=== PATIENT | male | born 1960 | race Caucasian/White ===

== ENCOUNTER → 2019-06-25 | Day surgery (SDC) | payer BC ==
[~2019-06-25] MED LIST: ASPIR 8181 MG PO; AVADART PO; DEXAMETHASONE SOD PHOS INJ 4 MG/ML VIAL ONE; FENTANYL CITRATE/PF 100MCG/2 ML INJ ONE; FLOMAX0.4 MG PO; GLYCOPYRROLATE INJ 1MG/ 5 ML SYR ONE; LEVOFLOXACIN 500MG/D5W 100ML 100 ML IV ONE; LIDOCAINE HCL 2% LOCAL INJ 5 ML SDV VIAL INJ ONE; MIDAZOLAM HCL 2 MG/2 ML VIAL ONE; MULTIVITAMINS1 EAC7 PO; ONDANSETRON HCL INJ 2MG/ML 2ML 2 MG/ML VIAL ONE; PRILOSEC OTC20 MG; PROPOFOL IV EMULSION 10 MG/ML 20 ML VIAL ONE; SEVOFLURANE INHAL SOLN 250 ML PEN BTL ONE; VITAMIN B12-FO1 EACH PO
--- OUTSIDE RECORDS SUMMARY | 2019-06-25 07:27 | XMS REPORT | Clinical Summary ---
Author Author [facility] Organization [place] [facility] Address Unknown Phone Unavailable Care Team Providers Care Bridge Mechanic Name Role Phone Asked, No Pcp PCP Unavailable Allergies No Known Allergies Medications End Date Status Medication Sig Dispensed Refills Start Date Active dutasteride (AVODART) 0.5 Take 0.5 mg 1 mg capsule by mouth 9 daily. Active tamsulosin (FLOMAX) 0.4 Take 0.4 mg 0 mg capsule by mouth. Active omeprazole (PriLOSEC) 10 Take 10 mg by 0 MG capsule mouth. Active BABY ASPIRIN ORAL Take by 0 mouth. Active acetaminophen-codeine Take 1 tablet 0 (TYLENOL WITH CODEINE #3) by mouth 9 300-30 mg per tablet every 6 (six) hours as needed. 06/12/2019 acetaminophen-codeine Take 1 tablet 15 tablet 0 (TYLENOL WITH CODEINE #3) by mouth 9 300-30 mg per every 6 (six) tabletIndications: Acute hours as Pain needed for moderate pain for up to 5 days .Acute Pain. 06/12/2019 keTOROlac (TORadol) 10 mg Take 1 tablet 20 tablet 0 tablet (10 mg total) 9 by mouth every 6 (six) hours as needed for moderate pain for up to 5 days. Active Problems Not on file Encounters Care Team Description Date Type Specialty Edwin Benson MD Uric acid nephrolithiasis (Primary Dx); Calculus of kidney 06/23/2019 Transcribe Access Orders Josh Nguyễn MD Su, Young, MD 06/17/2019 Anesthesia General Surgery Event Edwin Benson MD EXTRACORPOREAL SHOCKWAVE LITHOTRIPSY (ESWL) INITIAL-RIGHT 06/17/2019 Surgery General Surgery Edwin Benson MD 06/17/2019 Hospital General Surgery Encounter Edwin Benson MD Preoperative testing (Primary Dx) 06/12/2019 Pre-Admit Pre-Admission Testing Testing Appointment Edwin Benson MD Uric acid nephrolithiasis (Primary Dx) 06/12/2019 Transcribe Access Orders Kang Philippe MD Renal colic on left side (Primary Dx); Flank pain; Kidney stone; 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 06/07/2019 Emergency Emergency Medicine Edwin Benson MD Calculus of kidney (Primary Dx) 05/26/2019 Transcribe Access Orders Edwin Benson MD Kidney stone (Primary Dx) 02/20/2019 Transcribe Access Orders Edwin Benson MD Calculus of kidney; Calculus of ureter 11/22/2018 Hospital Radiology Encounter Edwin Benson MD Calculus of kidney; Calculus of ureter 08/19/2018 Hospital Radiology Encounter after 06/24/2018 Social History Date Tobacco Use Types Packs/Day Years Used Never Smoker Smokeless Tobacco: Never Used Drinks/Week oz/Week Comments Alcohol Use occ Yes Alcohol Habits Answer Date Recorded How often do you have a drink containing alcohol? Never 06/07/2019 How many drinks containing alcohol do you have on Not asked a typical day when you are drinking? How often do you have six or more drinks on one Not asked occasion? Sex Assigned at Date Recorded Not on file Industry Job Start Date Occupation Not on file Not on file Not on file Travel End Travel History Travel Start No recent travel history available. Last Filed Vital Signs Reading Time Taken Comments Vital Sign 176/80 06/17/2019 1:16 PM CDT Blood Pressure 67 06/17/2019 1:16 PM CDT Pulse 36.3 C (97.4 F) 06/17/2019 1:16 PM CDT Temperature 18 06/17/2019 1:16 PM CDT Respiratory Rate 97% 06/17/2019 1:16 PM CDT Oxygen Saturation - - Inhaled Oxygen Concentration 94.9 kg (209 lb 4.8 oz) 06/17/2019 10:56 AM CDT Weight 175.3 cm (5' 9") 06/17/2019 10:56 AM CDT Height 30.91 06/17/2019 10:56 AM CDT Body Mass Index Plan of Treatment Health Maintenance Due Date Last Done Comments COLONOSCOPY SCREENING 2009 SHINGLES VACCINES (#1) 2009 INFLUENZA VACCINE 05/01/2019 Procedures Comments Procedure Name Priority Date/Time Associated Diagnosis XR KUB KIDNEY URETER Routine 06/23/2019 Calculus of kidney BLADDER 9:27 AM CDT MN AN ELECTIVE Routine 06/17/2019 SUPRAGLOTTIC AIRWAY 12:26 PM CDT PROTHROMBIN TIME WITH INR Routine 06/12/2019 Preoperative testing 4:47 PM CDT ECG 12-LEAD Routine 06/12/2019 Preoperative testing 4:25 PM CDT XR ABDOMEN 1 VW Routine 06/12/2019 Uric acid nephrolithiasis 11:[address] ABDOMEN PELVIS WO STAT 06/07/2019 CONTRAST 11:41 AM CDT GRAM STAIN STAT 06/07/2019 11:23 AM CDT URINE CULTURE STAT 06/07/2019 11:23 AM CDT ESTIMATED GFR STAT 06/07/2019 10:38 AM CDT URINALYSIS SCREEN AND STAT 06/07/2019 MICROSCOPY, WITH REFLEX 10:38 AM CDT TO CULTURE COMPREHENSIVE METABOLIC STAT 06/07/2019 PANEL 10:38 AM CDT HC COMPLETE BLD COUNT STAT 06/07/2019 W/AUTO DIFF 10:38 AM CDT XR ABDOMEN 1 VW Routine 05/26/2019 Calculus of kidney 3:18 PM CDT XR ABDOMEN 1 VW Routine 02/20/2019 Kidney stone 12:52 PM CDT XR ABDOMEN 1 VW Routine 11/22/2018 Calculus of kidney 10:06 AM FLEXO OPERATOR Calculus of ureter XR ABDOMEN 1 VW Routine 08/19/2018 Calculus of kidney 10:14 AM FLEXO OPERATOR Calculus of ureter after 06/24/2018 Results * XR Kub Kidney Ureter Bladder (06/23/2019 9:27 AM CDT) Specimen Narrative Performed At EXAMINATION:XR KUB KIDNEY URETER BLADDER [facility] CLINICAL HISTORY:N20.0 Calculus of kidney, N20.0 COMPARISON:06/12/2019 IMPRESSION: 1.Small calyceal calculi overlying the kidneys appear stable. Cholecystectomy clips. L5-S1 fusion hardware. Bowel gas pattern nonspecific. Procedure Note Hm Interface, Radiology Results Incoming - 06/23/2019 9:45 AM CDT EXAMINATION: XR KUB KIDNEY URETER BLADDER CLINICAL HISTORY: N20.0 Calculus of kidney, N20.0 COMPARISON: 06/12/2019 IMPRESSION: 1.Small calyceal calculi overlying the kidneys appear stable. Cholecystectomy clips. L5-S1 fusion hardware. Bowel gas pattern nonspecific. Performing Organization Address City/State/Zipcode Phone Number [facility] [address] [place] [address] * Airway (06/17/2019 12:26 PM CDT) Narrative Performed At Josh Nguyễn MD 06/17/20194:16 PM Airway Date/Time: 06/17/2019 12:15 PM Performed by: Jocy Sandy CRNA Authorized by: Josh Nguyễn MD Location:OR Urgency:Elective Difficult Airway: No Anesthesiologist:Josh Nguyễn MD Resident/POULTRY CUTTER/AA:Jocy Sandy CRNA Performed by: resident/POULTRY CUTTER/AA Preoxygenated with 100% O2: Yes C-spine Precautions Maintained Throughout: Yes Mask Ventilation:Not attempted Final Airway Type:Supraglottic airway Final LMA:Unique LMA Size:4 Number of Attempts at Approach:1 * Prothrombin time with INR (06/12/2019 4:47 PM CDT) Prothrombin 13.4 11.5 - 14.5 sec CLARK time [facility] INR 1.05 [facility] Comment: [facility] For patients on anticoagulant [facility] therapy, reference ranges HOSPITAL below: Indication: INR Value Treatment of Venous Thrombosis, 2.0-3.0 pulmonary emboli, or prophylaxis of a venous thrombosis, or systemic emboli. High dose, high risk patients 3.0-4.5 with mechanical valves. NOTE:INR values over 3.0 are sometimes associated with gastrointestinal hemorrhage, especially values over 4.0. Specimen Blood Performing Organization Address City/State/Zipcode Phone Number [facility] [address] [place] [address] PATHOLOGY AND GENOMIC MEDICINE [facility] [address] [place] [address] HOSPITAL * ECG 12 lead (06/12/2019 4:25 PM CDT) Ventricular 63 [facility] rate Atrial rate 63 [facility] MN interval 144 [facility] QRSD interval 90 [facility] QT interval 426 [facility] QTC interval 435 [facility] P axis 1 11 [facility] QRS axis 1 30 [facility] T wave axis 54 [facility] EKG impression Normal sinus rhythm-Normal [facility] MUSE ECG-In automated comparison with ECG of 19-AUG-2013 12:53,-No significant change was found- Specimen Narrative Performed At Performing Organization Address City/[facility] Cent[facility] Phone Number [facility] [address] [place] [address] * XR Abdomen 1 Vw (06/12/2019 11:28 AM CDT) Only the most recent of 5 results within the time period is included. Specimen Narrative Performed At EXAMINATION:XR ABDOMEN 1 VW [facility] CLINICAL HISTORY:N20.0 Calculus of kidney, n20.0 COMPARISON:None. IMPRESSION: Numerous 3 to 4 mm calcifications project over the lower pole and to a lesser extent the upper pole of the right kidney. No definite calcifications in the expected course of the right ureter. 3 to 4 mm calyceal calcifications in the upper pole of the left kidney. No definite calcifications in the expected course of the ureter. There is a nonspecific bowel gas pattern Phleboliths in lower pelvis [id number] Procedure Note Interface, Radiology Results Incoming - 06/12/2019 11:39 AM CDT EXAMINATION: XR ABDOMEN 1 VW CLINICAL HISTORY: N20.0 Calculus of kidney, n20.0 COMPARISON: None. IMPRESSION: Numerous 3 to 4 mm calcifications project over the lower pole and to a lesser extent the upper pole of the right kidney. No definite calcifications in the expected course of the right ureter. 3 to 4 mm calyceal calcifications in the upper pole of the left kidney. No definite calcifications in the expected course of the ureter. There is a nonspecific bowel gas pattern Phleboliths in lower pelvis [id number] Performing Organization Address City/State/Zipcode Phone Number [facility] [address] [place] [address] * CT Abdomen Pelvis Wo Contrast (06/07/2019 11:41 AM CDT) Specimen Narrative Performed At EXAMINATION:CT ABDOMEN PELVIS WO CONTRAST [facility] CLINICAL HISTORY:Flank painrecurrent stone disease suspected COMPARISON:January 25, 2010 TECHNIQUE: Multiple axial CT images of the Abdomen and pelvis were obtained Without IV contrast limiting evaluation . Sagittal and coronal reconstructions were done. Radiation dose reduction technique used for this study. CT imaging was performed with iterative reconstruction technique and/or automated exposure control to reduce radiation dose. FINDINGS: HEPATOBILIARY:Hepatic cysts have increased in size with the largest in the inferior right hepatic lobe measuring 3.3 cm. GALLBLADDER: Absent. SPLEEN:No splenomegaly. PANCREAS:Unremarkable within the limitations of a noncontrast exam. ADRENALS:No adrenal nodules. KIDNEYS:Bilateral renal sinus is suspected. This measure up to 2.6 cm in the right. Nonobstructing calyceal stones present in both kidneys measuring up to 4 mm. There is no hydronephrosis. No ureter stones are detected. Small left renal cyst measures 1.4 cm. PERITONEUM/RETROPERITONEUM:No free air or fluid. No lymphadenopathy. ABDOMINAL AORTA/IVC: No signs of aneurysm. GI TRACT:There are some postoperative changes of prior gastric sleeve surgery. No bowel distention or bowel wall thickening. There are postoperative changes of prior appendectomy.No signs of diverticulitis. PELVIC ORGANS/BLADDER:There is a layering 3 mm stone in the urinary bladder. Prostate gland is not enlarged. BONES AND SOFT TISSUES:No acute abnormality. VISUALIZED LOWER CHEST: No acute abnormality. IMPRESSION: Nonobstructing stones in both kidneys. Small layering stone in the urinary bladder. [id number] Procedure Note Interface, Radiology Results - 06/07/2019 11:56 AM CDT EXAMINATION: CT ABDOMEN PELVIS WO CONTRAST CLINICAL HISTORY: Flank pain recurrent stone disease suspected COMPARISON: January 25, 2010 TECHNIQUE: Multiple axial CT images of the Abdomen and pelvis were obtained Without IV contrast limiting evaluation . Sagittal and coronal reconstructions were done. Radiation dose reduction technique used for this study. CT imaging was performed with iterative reconstruction technique and/or automated exposure control to reduce radiation dose. FINDINGS: HEPATOBILIARY: Hepatic cysts have increased in size with the largest in the inferior right hepatic lobe measuring 3.3 cm. GALLBLADDER: Absent. SPLEEN: No splenomegaly. PANCREAS: Unremarkable within the limitations of a noncontrast exam. ADRENALS: No adrenal nodules. KIDNEYS: Bilateral renal sinus is suspected. This measure up to 2.6 cm in the right. Nonobstructing calyceal stones present in both kidneys measuring up to 4 mm. There is no hydronephrosis. No ureter stones are detected. Small left renal cyst measures 1.4 cm. PERITONEUM/RETROPERITONEUM: No free air or fluid. No lymphadenopathy. ABDOMINAL AORTA/IVC: No signs of aneurysm. GI TRACT: There are some postoperative changes of prior gastric sleeve surgery. No bowel distention or bowel wall thickening. There are postoperative changes of prior appendectomy.No signs of diverticulitis. PELVIC ORGANS/BLADDER: There is a layering 3 mm stone in the urinary bladder. Prostate gland is not enlarged. BONES AND SOFT TISSUES: No acute abnormality. VISUALIZED LOWER CHEST: No acute abnormality. IMPRESSION: Nonobstructing stones in both kidneys. Small layering stone in the urinary bladder. [id number] Performing Organization Address [facility] [place] [address] * Gram stain (06/07/2019 11:23 AM CDT) Gram stain No WBC's or organisms seen. [facility] result Comment: [facility] Specimen Information HOSPITAL Specimen Source: Urine Specimen Site: Clean catch Specimen Urine Performing Organization Address [facility] Centercode Phone Number [facility] DEPARTMENT [place] [phone] PATHOLOGY AND GENOMIC MEDICINE [facility] [place] [address] HOSPITAL * Urine culture (06/07/2019 11:23 AM CDT) Urine culture Mixed marques <=10-3 col/cc [facility] isolate Comment: [facility] Specimen Information HOSPITAL Specimen Source: Urine Specimen Site: Clean catch Specimen Urine Performing Organization Address [facility] Centercode Phone Number [facility] [place] [address] PATHOLOGY AND GENOMIC MEDICINE [facility] [address] [place], [place] [id number] [place] [address] * Urinalysis screen and microscopy, with reflex to culture (06/07/2019 10:38 AM CDT) Specimen site Clean catch [facility] Color, UA Yellow [facility] Appearance, UA Clear [facility] Specific 1.026 1.001 - 1.035 [facility] gravity, UA [facility] pH, UA 5.0 5.0 - 8.5 [facility] Protein, UA 1+ (A) Negative [facility] Glucose, UA Negative Negative [facility] Ketones, UA Trace (A) Negative [facility] Bilirubin, UA Negative Negative [facility] Blood, UA Large (A) Negative [facility] Nitrite, UA Negative Negative [facility] Urobilinogen, Negative <2.0 [facility] Leukocyte Trace (A) Negative [facility] esterase, [facility] WBC, UA 7 (H) 0 - 1 /HPF [facility] RBC, UA >200 (H) 0 - 5 /HPF [facility] Bacteria, UA Trace None seen [facility] Yeast, UA None seen [facility] Yeast with None seen [facility] Specimen Urine Performing Organization Address City/State/Zipcode Phone Number [facility] [address] [place] [address] PATHOLOGY AND GENOMIC MEDICINE [facility] [address] [place] [address] HOSPITAL * Estimated GFR (06/07/2019 10:38 AM CDT) Estimated GFR 72 mL/min/1.73 m2 [facility] Comment: [facility] G1 >=90 Normal or high G2 60-89Mildly decreased [id number] Mildly to moderately decreased U0a24-92 Moderately to severely decreased G4 15-29Severely decreased G5 <15Kidney failure The eGFR was calculated using the Chronic Kidney Disease Epidemiology Collaboration (CKD-EPI) equation. Interpretation is based on recommendations of the National Kidney Foundation-Kidney Disease Outcomes Quality Initiative (NKF-KDOQI) published in 2014. Specimen Plasma specimen Performing Organization Address City/State/Zipcode Phone Number [facility] [address] [place] [address] PATHOLOGY AND GENOMIC MEDICINE [facility] [address] [place] [address] HOSPITAL * CBC with platelet and differential (06/07/2019 10:38 AM CDT) WBC 8.2 4.2 - 11.0 k/uL [facility] RBC 5.30 4.04 - 5.86 m/uL [facility] HGB 14.7 13.0 - 17.3 g/dL [facility] HCT 45.6 (H) 34.0 - 45.0 % [facility] MCV 86.0 80.0 - 98.0 fL [facility] MCH 27.7 27.0 - 34.0 pg [facility] MCHC 32.2 31.5 - 36.5 g/dL [facility] RDW - SD 40.1 37.0 - 51.0 fL [facility] MPV 11.0 (H) 7.4 - 10.4 fL [facility] Platelet count 202 150 - 400 k/uL [facility] Nucleated RBC 0.00 /100 WBC [facility] Neutrophils 74.4 (H) 36.0 - 66.0 % [facility] Lymphocytes 16.3 (L) 24.0 - 44.0 % [facility] Monocytes 7.2 (H) 0.0 - 6.0 % [facility] Eosinophils 1.1 0.0 - 6.0 % [facility] Basophils 0.5 0.0 - 1.2 % [facility] Immature 0.5 0.0 - 1.0 % [facility] granulocytes [facility] Specimen Blood Performing Organization Address City/State/Zipcode Phone Number [facility] [address] [place] [phone] PATHOLOGY AND GENOMIC MEDICINE [facility] [address] * Comprehensive metabolic panel (06/07/2019 10:38 AM CDT) Sodium 142 135 - 150 mEq/L [facility] Potassium 4.3 3.5 - 5.0 mEq/L [facility] Chloride 105 98 - 112 mEq/L [facility] CO2 25 24 - 31 mmol/L [facility] Anion gap 12@ANIO 7 - 15 mEq/L [facility] BUN 22 (H) 7 - 18 mg/dL [facility] Creatinine 1.10 0.70 - 1.20 mg/dL [facility] Glucose 120 (H) 65 - 100 mg/dL [facility] Calcium 9.8 8.8 - 10.2 mg/dL [facility] Protein 7.6 6.3 - 8.3 g/dL [facility] Albumin 4.6 3.5 - 5.0 g/dL [facility] A/G ratio 1.5 0.7 - 3.8 [facility] Alkaline 99 0 - 129 U/L [facility] phosphatase [facility] AST 18 10 - 50 U/L [facility] ALT 16 5 - 50 U/L [facility] Total bilirubin 0.5 0.2 - 1.2 mg/dL [facility] Specimen Plasma specimen Performing Organization Address City/State/Zipcode Phone Number [facility] [address] [place] [phone] PATHOLOGY AND GENOMIC MEDICINE [facility] [place] [address] HOSPITAL after 06/24/2018 Insurance Type Payer Benefit Subscriber ID Effective Phone Address Plan / Dates Group PPO BCBS BCBS xxxxxxxxxxxx [id number] CHOICE resent PPO/PEDRO BARILLAS PPO Advance Directives For more information, please contact: [phone] Patient Commissioned Security Officer Explanation Type Date Recorded Advance Directives, Living Will and Medical Power of Surgical Tech Advance Directives, 06/07/2019 11:21 AM Living Will and Medical Power of Surgical Tech Advance Directives, 06/12/2019 3:39 PM Living Will and Medical Power of Surgical Tech
[2019-06-25 11:25] VITALS: BP 131/88
--- NOTE | 2019-06-26 11:23 | Discharge Summary ---
PREOPERATIVE DIAGNOSIS: Multiple right mid caliceal calculi x3. POSTOPERATIVE DIAGNOSIS: Multiple right mid caliceal calculi x3. OPERATION: Right renal ESWL for all three calculi, each measuring 4, 5, 6 mm. ANESTHETIC: General. DESCRIPTION OF PROCEDURE: Mr. Page is a 59-year-old male, who presented with a history of recurrent kidney stone. He has had left renal ESWL 2 weeks ago with complete pulverization of the stones. He was brought at this time for ESWL for the right renal calculi. This patient was placed on the table in the supine position and the right renal calculi were brought into position between F1 and F2 of the fluoroscopic monitors. The lithotripsy was then started starting at 2 kV, and slowly and gradually increased to 7 kV. About 1500 shocks were delivered to the first stone and that was completely pulverized. We then moved to the other two calculi, which were close by together and another 1500 shocks were delivered, and the stones pulverized completely. The patient tolerated the procedure well and was taken to the recovery room in satisfactory condition. Plans for this patient are to be place on Cipro 500 mg one twice a day for one week. Ultracet tablet one every 6 hours p.r.n. and was given 30. He is to strain his urine. He is to return to the office on Thursday, June 27, 2019. Edwin Benson MD MA/ESAU /[id number]
== END | disposition home or self-care (01) ==
LOC: OR 07:23
PROVIDERS: ATTEND Specialist
DX: N20.0 Calculus of kidney (principal)
CPT/HCPCS: 50590; J1100; J1956; J2001; J2250; J2405; J2704; J3010; J3490